=== PATIENT | female | born 1945 | race Caucasian/White ===

== ENCOUNTER 2018-01-21 08:04 | Day surgery (SDC) | payer MEDICARE, BC ==
[2018-01-21] MEDS ORDERED: SOD CHLORIDE 0.9% 1,000 ML IV ×2 (09:00→10:27)
[2018-01-21 09:37] LABS: ADD MAN DIFF? NO
[2018-01-21 09:44] LABS: BASOPHIL # 0.1 10^3/ul (0.0-0.1); BASOPHILS % 0.9 % (0.0-2.0); EOSINOPHILS # 0.3 10^3/ul (0.0-0.5); HEMATOCRIT 44.3 % (37.0-47.0); HEMOGLOBIN 14.9 g/dl (12.0-16.0); LYMPHOCYTES # 1.8 10^3/ul (0.8-2.9); LYMPHOCYTES % 32.6 % (15.0-51.0); MEAN CORPUSCULAR HGB CONC 33.6 g/dl (32.0-37.0); MEAN CORPUSCULAR VOLUME 95.1 fl (82.0-101.0); MEAN PLATELET VOLUME 11.8 fl (7.4-10.4); MONOCYTE # 0.7 10^3/ul (0.3-0.9); MONOCYTES % 13.3 % (0.0-11.0); NEUTROPHIL # 2.7 10^3/ul (1.6-7.5); PLATELET COUNT 250 10^3/UL (140-415); RED BLOOD COUNT 4.66 10^6/ul (4.20-5.40); RED CELL DISTRIBUTION WIDTH 12.7 % (11.5-14.5)
[2018-01-21 09:44] LABS: WHITE BLOOD COUNT 5.6 10^3/ul (4.8-10.8)
[2018-01-21] MEDS ORDERED: MIDAZOLAM 1 MG/ML 2 ML INJ (09:45)
[2018-01-21] MEDS ORDERED: FENTAnyl 50 MCG/ML VIAL (09:45)
[2018-01-21] MEDS ORDERED: IODIXANOL LOCM 100 ML BTL (09:46)
[2018-01-21 10:01] LABS: ALANINE AMINOTRANSFERASE 31 IU/L (13-69); ALBUMIN 4.6 g/dl (3.3-4.9); ALBUMIN/GLOBULIN RATIO 1.35; ALKALINE PHOSPHATASE 87 IU/L (42-121); ANION GAP 17 (8-16); ASPARTATE AMINO TRANSFERASE 28 IU/L (15-46); BILIRUBIN,INDIRECT 0.3 mg/dl (0-1.1); BILIRUBIN,TOTAL 0.3 mg/dl (0.2-1.3); CARBON DIOXIDE 31 mmol/L (21-31); CHLORIDE 102 mmol/L (97-110); CHOL/HDL RATIO 2.6 RATIO; CHOLESTEROL 156 mg/dl (100-200); CREATINE KINASE 94 IU/L (23-200); GLUCOSE 109 mg/dl (70-220); HDL CHOLESTEROL 60 mg/dl (33-92); LDL CHOLESTEROL,CALCULATED 64 mg/dl; TRIGLYCERIDES 158 mg/dl (0-149)
[2018-01-21 10:04] LABS: BLOOD UREA NITROGEN 22 mg/dl (7-20); CALCIUM 9.3 mg/dl (8.4-10.2); CREATININE 0.81 mg/dl (0.44-1.00); POTASSIUM 4.6 mmol/L (3.5-5.1); SODIUM 145 mmol/L (135-144)
[2018-01-21 10:10] LABS: INR 0.95; PARTIAL THROMBOPLASTIN TIME 30.9 Sec (25.0-35.0); PROTIME 12.8 Sec (11.9-14.9)
[2018-01-21 10:11] LABS: CK INDEX 1.6; CK-MB 1.48 ng/ml (0.0-2.4)
[2018-01-21 10:14] LABS: TROPONIN-I < 0.012 ng/ml (0.00-0.12)
[2018-01-21] MEDS ORDERED: LIDOCAINE 1% (MDV) 20 ML INJ (10:27)
[2018-01-21] MEDS ORDERED: ACETAMINOPHEN 325 MG TAB PO (10:30)
== END 2018-01-21 16:10 | disposition home or self-care (01) ==
LOC: SDS 08:04
DX: I25.10 Atherosclerotic heart disease of native coronary artery without angina pectoris (principal); I48.2 Chronic atrial fibrillation; Z79.01 Long term (current) use of anticoagulants; R94.39 Abnormal result of other cardiovascular function study
CPT/HCPCS: 80053; 80061; 82550; 82553; 84484; 85025; 85610; 85730; 93458